=== PATIENT | female | born 1955 | race Caucasian/White ===

== ENCOUNTER 2024-03-03 12:44 | Inpatient (IN) | payer MEDICARE ==
[2024-03-03 13:36] LABS: BASOPHILS ABSOLUTE AUTO 0.07 K/uL (0.00-0.10); BASOPHILS PERCENT AUTO 0.6 % (0.1-1.3); EOSINOPHILS ABSOLUTE AUTO 0.29 K/uL (0.00-0.40); EOSINOPHILS PERCENT AUTO 2.3 % (0.0-5.4); HEMATOCRIT 47.3 % (34.3-46.0); HEMOGLOBIN 15.3 g/dL (11.2-15.5); IMMATURE GRAN ABSOLUTE AUTO 0.08 K/uL (0.00-0.23); IMMATURE GRAN PERCENT AUTO 0.6 % (0.0-0.7); LYMPHOCYTES ABSOLUTE AUTO 2.95 K/uL (0.8-3.3); LYMPHOCYTES PERCENT AUTO 23.2 % (11.4-47.7); MEAN CORPUSCULAR HGB CONC 32.3 g/dL (31.6-35.5); MEAN CORPUSCULAR VOLUME 92.7 fL (81.4-99.0); MONOCYTES ABSOLUTE AUTO 0.71 K/uL (0.20-0.90); MONOCYTES PERCENT AUTO 5.6 % (3.3-12.6); NEUTROPHILS PERCENT AUTO 67.7 % (40.0-78.1); PLATELET COUNT,PLT 256 K/uL (130-375); WHITE BLOOD CELL COUNT,WBC 12.7 K/uL (3.2-11.0)
[2024-03-03 13:37] LABS: APPEARANCE,URINE SLIGHTLY CLOUDY (CLEAR); BILIRUBIN,URINE NEGATIVE (NEGATIVE); COLOR,URINE YELLOW (YELLOW); GLUCOSE,URINE NEGATIVE (NEGATIVE); KETONES,URINE NEGATIVE (NEGATIVE); LEUKOCYTE ESTERASE,URINE MODERATE (NEGATIVE); NITRITE,URINE NEGATIVE (NEGATIVE); OCCULT BLOOD,URINE NEGATIVE (NEGATIVE); PROTEIN,URINE NEGATIVE (NEGATIVE); UROBILINOGEN,URINE 0.2 EU/dL (0.2-1.0)
[2024-03-03] MEDS: Sodium Chloride 0.9% 10 ML Syringe FLUSH PRN (13:38)
[2024-03-03 13:43] LABS: AMORPHOUS SEDIMENT,URINE NOT SEEN; BACTERIA,URINE RARE; EPITHELIAL CELLS,URINE RARE; MUCUS,URINE NOT SEEN; RBC,URINE NOT SEEN (0-5)
[2024-03-03 14:04] LABS: A/G RATIO 0.8 (1.2-2.2); ALANINE AMINOTRANSFERASE,ALT 38 U/L (12-78); ALBUMIN 3.3 g/dL (3.4-5.0); ALKALINE PHOSPHATASE 145 U/L (46-116); ANION GAP 6.4 mmol/L (5.0-14.0); ASPARTATE AMNIOTRANSFERASE,AST 24 U/L (15-37); BILIRUBIN TOTAL 0.4 mg/dL (0.2-1.0); BLOOD UREA NITROGEN,BUN 12 mg/dL (7-18); CALCIUM 8.8 mg/dL (8.5-10.1); CARBON DIOXIDE,CO2 34 mmol/L (21-32); CHLORIDE,CL 102 mmol/L (100-108); CREATININE 0.6 mg/dL (0.6-1.0); EST CRCL DRUG DOSING (CG) 64.46 mL/min; ESTIMATED GFR 98 mL/min (>60); GLUCOSE RANDOM 91 mg/dL (74-106); POTASSIUM,K 4.4 mmol/L (3.6-5.2); PRO B-TYPE NATRIUR PEPT,BNPPRO 76 pg/mL (5-125); PROTEIN TOTAL,TP 7.6 g/dL (6.4-8.2); SODIUM,NA 138 mmol/L (140-148); TROPONIN I HIGH SENSITIVITY 6.9 pg/mL (<=60.3)
[2024-03-03] MEDS: Albuterol 0.083% 2.5 MG/3 ML Neb Soln NEB ONE (15:26)
[2024-03-03 15:32] LABS: BASE EXCESS ARTERIAL 2.1 mm/L; CARBOXYHEMOGLOBIN 5.5 % (0.0-1.6); METHEMOGLOBIN 0.7 %; O2 SATURATION ARTERIAL 91.4 % (95.0-98.0); OXYHEMOGLOBIN 85.7 %; PCO2 ARTERIAL 62.9 mmHg (35.0-42.0); PO2 ARTERIAL 69.2 mmHg (75.0-100.0); TOTAL HEMOGLOBIN 14.9 g/dL (12.0-16.0)
[2024-03-03] MEDS: Furosemide 40 MG/4 ML VIAL IVPUSH ONE (15:49)
[2024-03-03 16:10] LABS: AMPHETAMINES SCREEN, URINE NEGATIVE (NEGATIVE); BARBITURATE SCREEN,URINE NEGATIVE (NEGATIVE); BENZODIAZEPINES SCREEN,URINE NEGATIVE (NEGATIVE); METHADONE SCREEN, URINE NEGATIVE (NEGATIVE); METHAMPHETAMINES SCREEN, URINE NEGATIVE (NEGATIVE); OXYCODONE SCREEN,URINE PRESUMPTIVE POSITIVE (NEGATIVE); PROPOXYPHENE SCREEN,URINE NEGATIVE (NEGATIVE); THC SCREEN,URINE 50 NG/ML PRESUMPTIVE POSITIVE (NEGATIVE)
[2024-03-03] MEDS: cefTRIAXone 1 GM in Sodium Chloride 0.9% 50 ML IV SCH (16:46)
[2024-03-03] MEDS: methylPREDNISolone Sodium Succinate 125 MG/2 ML SDV IVPUSH ONE (16:55)
[2024-03-03] MEDS ORDERED: Sodium Chloride 0.9% 1,000 ML IV SCH (16:59)
[2024-03-03] MEDS ORDERED: Sodium Chloride 0.9% 10 ML Syringe FLUSH PRN (16:59)
[2024-03-03] MEDS ORDERED: Ondansetron 4 MG/2 ML SDV IV PRN (16:59)
[2024-03-03] MEDS ORDERED: Albuterol 0.083% 2.5 MG/3 ML Neb Soln NEB PRN (16:59)
[2024-03-03] MEDS ORDERED: Acetaminophen 325 MG Tab PO PRN (16:59)
[2024-03-03] MEDS ORDERED: Polyethylene Glycol 3350 Powder 17 GM Packet PO PRN (16:59)
[2024-03-03] MEDS ORDERED: Nicotine Polacrilex 2 MG Gum CHEW PRN (17:15)
[2024-03-03] MEDS ORDERED: Glucose Gel 15 GM in 37.5 GM Tube PO PRN (17:27)
[2024-03-03] MEDS ORDERED: LORazepam 0.5 MG Tab PO PRN (17:27)
[2024-03-03] MEDS ORDERED: 50% Dextrose in Water 50 ML Syringe IV PRN (17:27)
[2024-03-03] MEDS: Doxycycline 100 MG in Sodium Chloride 0.9% 100 ML IV SCH (17:28)
[2024-03-03] MEDS: methylPREDNISolone Sodium Succinate 40 MG/1 ML SDV IVPUSH SCH (17:34)
[2024-03-03] MEDS: Nicotine 21 MG/24 Hr Patch TRDERM SCH (17:40)
[2024-03-03] MEDS: Acetaminophen/oxyCODONE 325-5 MG Tab PO PRN (18:30)
[2024-03-03 19:07] LABS: BASE EXCESS ARTERIAL 4.6 mm/L; BICARBONATE,ARTERIAL 30.8 mmol/L (22.0-26.0); CARBOXYHEMOGLOBIN 4.6 % (0.0-1.6); METHEMOGLOBIN 0.8 %; O2 SATURATION ARTERIAL 89.1 % (95.0-98.0); OXYHEMOGLOBIN 84.3 %; PCO2 ARTERIAL 53.6 mmHg (35.0-42.0); PO2 ARTERIAL 58.5 mmHg (75.0-100.0)
[2024-03-03] MEDS: Insulin Lispro 100 Unit/ML 3 ML KwikPen SUBCUT SCH (21:19)
[2024-03-03] MEDS: Albuterol/Ipratropium 3.0-0.5 MG/3 ML Neb Soln NEB SCH (21:52)
[2024-03-03] MEDS: Enoxaparin 40 MG/0.4 ML Syringe SUBCUT SCH (21:52)
[2024-03-04 06:04] LABS: HEMATOCRIT 47.2 % (34.3-46.0); HEMOGLOBIN 15.2 g/dL (11.2-15.5); MEAN CORPUSCULAR HEMOGLOBIN 29.7 pg (31.6-35.5); MEAN CORPUSCULAR HGB CONC 32.2 g/dL (31.6-35.5); MEAN CORPUSCULAR VOLUME 92.4 fL (81.4-99.0); RED BLOOD CELL COUNT 5.11 M/uL (3.77-5.24); WHITE BLOOD CELL COUNT,WBC 13.2 K/uL (3.2-11.0)
[2024-03-04 06:18] LABS: ANION GAP 7.9 mmol/L (5.0-14.0); CALCIUM 8.9 mg/dL (8.5-10.1); CREATININE 0.8 mg/dL (0.6-1.0); EST CRCL DRUG DOSING (CG) 48.34 mL/min; MAGNESIUM 2.2 mg/dL (1.8-2.4); POTASSIUM,K 4.8 mmol/L (3.6-5.2)
[2024-03-04] MEDS ORDERED: predniSONE 20 MG Tab PO SCH (08:00)
[2024-03-04] MEDS: Formoterol/Mometasone 100-5 MCG 8.8 GM Inhaler IH SCH (08:09)
[2024-03-04] MEDS: Tiotropium Bromide 4 GM Inhalation Spray (2.5mcg/1 dose; 10 doses) INH SCH (08:09)
[2024-03-04] MEDS ORDERED: Fluticasone/Umeclidin/Vilanter [Trelegy Ellipta] 100-62.5-25 INH SCH (09:00)
[2024-03-04] MEDS: Fluticasone/Umeclidin/Vilanter [Trelegy Ellipta] 100-62.5-25 INH SCH (09:59)
[2024-03-04] MEDS: Albuterol/Ipratropium 3.0-0.5 MG/3 ML Neb Soln NEB SCH (10:26)
[2024-03-04] MEDS ORDERED: methylPREDNISolone Sodium Succinate 40 MG/1 ML SDV IVPUSH SCH (17:00)
[2024-03-08] MEDS ORDERED: DULAGLUTIDE 0.75 MG/0.5 ML SQ SCH (09:00)
== END 2024-03-04 14:44 | disposition home or self-care (01) | DRG 189 ==
LOC: JP.ED 12:44 → JP.ICU 16:08
PROVIDERS: ADMIT Hospitalist; ATTEND Hospitalist
PROC: 4A133R1 Monitoring of Arterial Saturation, Peripheral, Percutaneous Approach (ICD-10-PCS; principal; 2024-03-03)
PROC: 5A09357 Assistance with Respiratory Ventilation, Less than 24 Consecutive Hours, Continuous Positive Airway Pressure (ICD-10-PCS; 2024-03-03)
DX: R09.02 Hypoxemia (principal); J96.21 Acute and chronic respiratory failure with hypoxia; N39.0 Urinary tract infection, site not specified; J44.1 Chronic obstructive pulmonary disease with (acute) exacerbation; J44.0 Chronic obstructive pulmonary disease with (acute) lower respiratory infection; N30.00 Acute cystitis without hematuria; J96.22 Acute and chronic respiratory failure with hypercapnia; H54.7 Unspecified visual loss; Z88.8 Allergy status to other drugs, medicaments and biological substances; F17.210 Nicotine dependence, cigarettes, uncomplicated; G47.30 Sleep apnea, unspecified; R60.9 Edema, unspecified; J20.9 Acute bronchitis, unspecified; F41.9 Anxiety disorder, unspecified; Z88.5 Allergy status to narcotic agent; Z88.0 Allergy status to penicillin; Z88.2 Allergy status to sulfonamides; Z91.041 Radiographic dye allergy status; Z79.52 Long term (current) use of systemic steroids; Z79.899 Other long term (current) drug therapy; Z90.710 Acquired absence of both cervix and uterus; Z98.890 Other specified postprocedural states
CPT/HCPCS: 36415; 36600; 71046; 80053; 80305; 81001; 82803; 83605; 83880; 84484; 85025; 85379; 87086; 87088; 87186; 96374; 99285; J1940; J3490; 80048; 82947; 83735; 85027; 94640; 94660; 99222; 99238; A9270-GY; J0696; J1650; J1815; J2919; J7620